=== PATIENT | male | born 1970 | race Caucasian/White ===

== ENCOUNTER 2018-10-30 04:34 | Emergency (ER) | payer BC ==
[~2018-10-30] VITALS: Ht 167.6 cm; Wt 76.2 kg
--- NOTE | ~2018-10-30 | EKG ---
[place], [place] ELECTROCARDIOGRAM REPORT NAME: PAIGE FISHER UNIT #: [id number] ROOM: DOCTOR: EPIPHANY DRAFT REPORT BIRTHDATE: [birth year] [facility] Test Date: 2018-10-30 Test Time: 04:39:33 Pat Name: PAIGE FISHER Department: Room: Gender: Member Certification Manager: MELISSA : 1970 Requested By: JAYE CURIEL Order Number: [id number] Reading MD: Erick Roche MD Measurements Intervals [place] Rate: 74 P: 42 PA: 164 QRS: 2 QRSD: 77 T: 28 QT: 392 QTc: 435 Interpretive Statements Sinus rhythm Nonspecific ST T changes Electronically Signed On 11-04-2018 9:49:07 PDT by Erick Roche MD CM:EKGRPT:ELECTROCARDIOGRAM REPORT [id number] JAYE CURIEL MD EPIPHANY DRAFT REPORT JAYE CURIEL MD
--- NOTE | ~2018-10-30 | EKG ---
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
[~2018-10-30 04:34] MED LIST: CATAFLAM50 MG PO; METOPROL; METOPROLOL50 MG PO; PRILOSEC40 MG PO; [UNRECOGNIZED DRUG - OTHER] PO
[2018-10-30 05:02] LABS: BASO # 0.1 10*3/uL (0.0-0.1); BASO % 0.7 % (0.0-1.0); EOS # 0.2 10*3/uL (0.0-0.4); EOS % 2.4 % (1.0-4.0); HEMATOCRIT 47.9 % (42.0-52.0); HEMOGLOBIN 16.9 g/dl (14.0-18.0); LYMPH # 2.8 10*3/uL (1.3-4.4); LYMPH % 34.1 % (27.0-41.0); MEAN CELL VOLUME 92.6 fl (80.0-94.0); MEAN CORPUSCULAR HGB 32.7 pg (27.0-31.0); MEAN CORPUSCULAR HGB CONC 35.3 g/dl (33.0-37.0); MEAN PLATELET VOLUME 11.6 fl (9.6-12.3); MONO # 0.6 10*3/uL (0.1-1.0); NEUT # 4.6 10*3/uL (2.3-7.9); NEUT % 55.4 % (47.0-73.0); PLATELET COUNT AUTOMATED 220 10*3/uL (130-400); RED BLOOD COUNT 5.17 10*6/uL (4.50-5.90); WHITE BLOOD COUNT 8.3 10*3/uL (4.8-10.8)
[2018-10-30 05:13] LABS: ACT PARTIAL THROMBO TIME 25.1 SECONDS (20.0-32.1); INTERNATIONAL NORM RATIO 0.9 (2.0-3.5)
[2018-10-30 06:07] LABS: ALBUMIN 3.9 gm/dl (3.1-4.5); ALKALINE PHOSPHATASE 93 U/L (45-117); CHLORIDE 106 mmol/L (98-107); POTASSIUM 3.9 mmol/L (3.5-5.1); SODIUM 138 mmol/L (136-145)
[2018-10-30 06:08] LABS: BUN 12 mg/dl (7-24); SGOT/AST 49 IU/L (3-35); SGPT/ALT 50 U/L (12-78); TOTAL PROTEIN 7.8 gm/dL (6.4-8.2)
[2018-10-30 06:12] LABS: TROPONIN I < 0.015 ng/ml (<0.045)
== END 2018-10-30 09:58 | disposition home or self-care (01) ==
LOC: ED 04:34
PROVIDERS: Emergency Medicine Emergency Medical Services
DX: R00.1 Bradycardia, unspecified (principal); R07.89 Other chest pain; E78.5 Hyperlipidemia, unspecified; K21.9 Gastro-esophageal reflux disease without esophagitis; Z79.899 Other long term (current) drug therapy

== ENCOUNTER → 2020-04-15 | Outpatient (CLI) | payer SELFPAY | END | disposition home or self-care (01) | LOC: COVID19 11:47 | PROVIDERS: ATTEND Nurse Practitioner Family | DX: U07.1 COVID-19 (principal) ==

== ENCOUNTER 2020-10-21 00:18 | Emergency (ER) | payer SELFPAY ==
[~2020-10-21] VITALS: Ht 167.6 cm; Wt 83.9 kg
[2020-10-21 00:42] LABS: BASO # 0.1 10*3/uL (0.0-0.1); BASO % 0.5 % (0.0-1.0); EOS # 0.1 10*3/uL (0.0-0.4); EOS % 0.6 % (1.0-4.0); HEMATOCRIT 50.9 % (42.0-52.0); LYMPH # 2.4 10*3/uL (1.3-4.4); MEAN CELL VOLUME 93.2 fl (80.0-94.0); MEAN CORPUSCULAR HGB 32.4 pg (27.0-31.0); MEAN CORPUSCULAR HGB CONC 34.8 g/dl (33.0-37.0); MEAN PLATELET VOLUME 10.9 fl (9.6-12.3); MONO # 0.9 10*3/uL (0.1-1.0); MONO % 7.6 % (3.0-9.0); NEUT # 7.8 10*3/uL (2.3-7.9); NEUT % 69.9 % (47.0-73.0); PLATELET COUNT AUTOMATED 220 10*3/uL (130-400); RED BLOOD COUNT 5.46 10*6/uL (4.50-5.90); RED CELL DISTRI WIDTH 12.9 % (0-14.5); WHITE BLOOD COUNT 11.2 10*3/uL (4.8-10.8)
[2020-10-21 00:59] LABS: ALBUMIN 4.1 gm/dl (3.1-4.5); ALKALINE PHOSPHATASE 89 U/L (45-117); BUN 12 mg/dl (7-24); CHLORIDE 104 mmol/L (98-107); CREATININE 0.88 mg/dL (0.70-1.30); POTASSIUM 3.5 mmol/L (3.5-5.1); SGOT/AST 36 IU/L (3-35); SGPT/ALT 67 U/L (12-78); SODIUM 139 mmol/L (136-145); TOTAL PROTEIN 8.1 gm/dL (6.4-8.2)
[2020-10-21 01:07] LABS: TROPONIN I < 0.015 ng/ml (<0.045)
== END 2020-10-21 07:17 | disposition home or self-care (01) ==
LOC: ED 00:18
PROVIDERS: Emergency Medicine
DX: R07.89 Other chest pain (principal); E78.5 Hyperlipidemia, unspecified; I10 Essential (primary) hypertension; Z79.899 Other long term (current) drug therapy

== ENCOUNTER 2023-04-22 10:26 | Emergency (ER) | payer BC ==
[~2023-04-22] VITALS: Ht 167.6 cm; Wt 86.2 kg
[2023-04-22 11:28] LABS: BASO # 0.1 10*3/uL (0.0-0.1); BASO % 0.9 % (0.0-1.0); EOS # 0.1 10*3/uL (0.0-0.4); EOS % 1.6 % (1.0-4.0); HEMATOCRIT 51.2 % (42.0-52.0); LYMPH % 24.9 % (27.0-41.0); MEAN CELL VOLUME 92.3 fl (80.0-94.0); MEAN CORPUSCULAR HGB 31.4 pg (27.0-31.0); MEAN PLATELET VOLUME 11.4 fl (9.6-12.3); MONO # 0.6 10*3/uL (0.1-1.0); MONO % 8.1 % (3.0-9.0); NEUT # 5.1 10*3/uL (2.3-7.9); PLATELET COUNT AUTOMATED 194 10*3/uL (130-400); RED BLOOD COUNT 5.55 10*6/uL (4.50-5.90); RED CELL DISTRI WIDTH 13.2 % (0-14.5); WHITE BLOOD COUNT 7.9 10*3/uL (4.8-10.8)
[2023-04-22 11:50] LABS: BILIRUBIN Negative (Negative); BLOOD Negative (Negative); CLARITY Clear (Clear); COLOR Yellow (Yellow); GLUCOSE Negative (Negative); KETONE Negative (Negative); LEUKO ESTERASE Negative (Negative); NITRITE Negative (Negative); PH 5.5 (4.5-8.0)
[2023-04-22 12:10] LABS: ALKALINE PHOSPHATASE 99 U/L (46-116); BUN 8 mg/dl (9-23); CHLORIDE 103 mmol/L (98-107); POTASSIUM 4.7 mmol/L (3.4-5.1); SGPT/ALT 91 U/L (5-49); TOTAL PROTEIN 8.1 gm/dL (6.0-8.0)
[2023-04-22 12:16] LABS: WBC 0-2 wbc/hpf (0-5)
[2023-04-22 12:17] LABS: BACTERIA 1+; EPITHELIAL CELLS 0-2; MUCOUS 1+
[2023-04-22] MEDS ORDERED: CYCLOBENZAPRINE5 M3 PO (12:39)
== END 2023-04-22 12:41 | disposition home or self-care (01) ==
LOC: ED 10:26
PROVIDERS: Physician Assistant Medical
DX: S39.011A Strain of muscle, fascia and tendon of abdomen, initial encounter (principal); R35.0 Frequency of micturition; R30.9 Painful micturition, unspecified; K21.9 Gastro-esophageal reflux disease without esophagitis; I10 Essential (primary) hypertension; Z79.899 Other long term (current) drug therapy; X58.XXXA Exposure to other specified factors, initial encounter; Y93.89 Activity, other specified; Y92.89 Other specified places as the place of occurrence of the external cause; Y99.8 Other external cause status

== ENCOUNTER 2023-11-12 19:04 | Inpatient (IN) | payer BC ==
[~2023-11-12] VITALS: Ht 172.7 cm; Wt 81.6 kg
[~2023-11-12 19:04] MED LIST changes: +CYCLOBENZAPRINE5 M3 PO
[2023-11-12 19:27] LABS: BASO # 0.1 10*3/uL (0.0-0.1); BASO % 0.9 % (0.0-1.0); EOS # 0.1 10*3/uL (0.0-0.4); EOS % 1.6 % (1.0-4.0); LYMPH # 2.1 10*3/uL (1.3-4.4); LYMPH % 24.3 % (27.0-41.0); MEAN CORPUSCULAR HGB 32.5 pg (27.0-31.0); MEAN CORPUSCULAR HGB CONC 34.6 g/dl (33.0-37.0); MEAN PLATELET VOLUME 11.5 fl (9.6-12.3); MONO # 0.8 10*3/uL (0.1-1.0); MONO % 9.7 % (3.0-9.0); NEUT # 5.4 10*3/uL (2.3-7.9); NEUT % 62.8 % (47.0-73.0); PLATELET COUNT AUTOMATED 197 10*3/uL (130-400); RED BLOOD COUNT 5.32 10*6/uL (4.50-5.90); RED CELL DISTRI WIDTH 13.5 % (0-14.5); WHITE BLOOD COUNT 8.6 10*3/uL (4.8-10.8)
[2023-11-12 19:30] VITALS: BP 171/99
[2023-11-12 19:44] LABS: ALKALINE PHOSPHATASE 118 U/L (46-116); BUN 8 mg/dl (9-23); CHLORIDE 105 mmol/L (98-107); POTASSIUM 3.8 mmol/L (3.4-5.1); SGPT/ALT 130 U/L (5-49); TOTAL PROTEIN 7.7 gm/dL (6.0-8.0)
[2023-11-12 19:46] LABS: ACT PARTIAL THROMBO TIME 25.4 SECONDS (20.0-32.1)
[2023-11-12] MEDS ORDERED: BISACODYL 10 MG SUPP R PRN (21:45)
[2023-11-12] MEDS ORDERED: Ondansetron Hydrochloride 4 MG/2 ML VIAL IV PRN (21:45)
[2023-11-12] MEDS ORDERED: ACETAMINOPHEN 650 MG SUPP R PRN (21:45)
[2023-11-12] MEDS ORDERED: BISACODYL 5 MG TAB PO PRN (21:45)
[2023-11-12] MEDS ORDERED: TEMAZEPAM 15 MG CAP PO PRN (21:45)
[2023-11-12] MEDS ORDERED: ACETAMINOPHEN 325 MG TAB PO PRN (21:45)
[2023-11-12] MEDS ORDERED: Magnesium Hydroxide 30 ML UDC PO PRN (21:45)
[2023-11-12 21:56] VITALS: BP 177/94
[2023-11-12] MEDS ORDERED: ASPIRIN ENTERIC COATED 81 MG TAB PO SCH (22:00)
[2023-11-12] MEDS ORDERED: Metoprolol Tartrate 25 MG TAB PO SCH (22:06)
[2023-11-12] MEDS ORDERED: Metoprolol Tartrate 25 MG TAB PO ONE (22:20)
[2023-11-12] MEDS ORDERED: FUROSEMIDE 20 MG IV SCH (22:35)
[2023-11-13 02:32] VITALS: BP 153/69
[2023-11-13] MEDS ORDERED: OMEPRAZOLE 20 MG CAP PO SCH (06:00)
[2023-11-13 06:54] LABS: BASO # 0.1 10*3/uL (0.0-0.1); BASO % 0.9 % (0.0-1.0); EOS # 0.2 10*3/uL (0.0-0.4); EOS % 1.8 % (1.0-4.0); HEMATOCRIT 48.9 % (42.0-52.0); LYMPH # 2.9 10*3/uL (1.3-4.4); LYMPH % 32.6 % (27.0-41.0); MEAN CELL VOLUME 91.9 fl (80.0-94.0); MEAN CORPUSCULAR HGB CONC 34.8 g/dl (33.0-37.0); MONO # 0.8 10*3/uL (0.1-1.0); NEUT # 4.8 10*3/uL (2.3-7.9); NEUT % 55.1 % (47.0-73.0); PLATELET COUNT AUTOMATED 171 10*3/uL (130-400); RED BLOOD COUNT 5.32 10*6/uL (4.50-5.90); RED CELL DISTRI WIDTH 13.4 % (0-14.5); WHITE BLOOD COUNT 8.7 10*3/uL (4.8-10.8)
[2023-11-13 07:07] VITALS: BP 140/72
[2023-11-13 07:30] LABS: ALKALINE PHOSPHATASE 89 U/L (46-116); BUN 7 mg/dl (9-23); CHLORIDE 105 mmol/L (98-107); CHOLESTEROL 222 mg/dL (<200); FREE T4 0.86 ng/dl (0.89-1.76); LDL CHOLESTEROL 116 mg/dL (9-159); POTASSIUM 3.7 mmol/L (3.4-5.1); SGPT/ALT 104 U/L (5-49); TOTAL PROTEIN 7.2 gm/dL (6.0-8.0); TRIGLYCERIDES 343 mg/dl (<150)
[2023-11-13] MEDS ORDERED: ATORVASTATIN CALCIUM 40 MG TABLET PO SCH (10:00)
[2023-11-13] MEDS ORDERED: FUROSEMIDE 20 MG/2 ML VIAL IV SCH (10:00)
[2023-11-13] MEDS ORDERED: Enoxaparin Sodium 40 MG/0.4 ML SYR SC SCH (10:00)
[2023-11-13] MEDS ORDERED: LOPRESSOR25 MG PO (15:18)
[2023-11-13] MEDS ORDERED: ATORVASTATIN CA40 M1 PO (15:18)
[2023-11-13] MEDS ORDERED: ASPIRIN ADULT L81 M2 PO (15:18)
== END 2023-11-13 16:18 | disposition home or self-care (01) | DRG 313 ==
LOC: ED 19:04 → EDHOLD 21:38
PROVIDERS: Internal Medicine; Student in an Organized Health Care Education/Training Program; ADMIT Internal Medicine; ATTEND Internal Medicine
DX: R07.89 Other chest pain (principal); I16.0 Hypertensive urgency; I20.9 Angina pectoris, unspecified; E78.5 Hyperlipidemia, unspecified; G47.33 Obstructive sleep apnea (adult) (pediatric); K21.9 Gastro-esophageal reflux disease without esophagitis; R74.01 Elevation of levels of liver transaminase levels; R73.03 Prediabetes; R73.9 Hyperglycemia, unspecified; E78.2 Mixed hyperlipidemia; Z79.899 Other long term (current) drug therapy; Z87.891 Personal history of nicotine dependence; Z82.49 Family history of ischemic heart disease and other diseases of the circulatory system; Z79.2 Long term (current) use of antibiotics; Z98.52 Vasectomy status